=== PATIENT | female | born 1950 | race Caucasian/White ===

== ENCOUNTER 2016-04-30 07:56 | Day surgery (SDC) | payer BC ==
--- NOTE | ~2016-04-30 | EGD ---
EGD REPORT [facility] [address] [address] NAME: MARLEY ROTH : [birth year] STATUS : REG [facility]#: [id number] AGE: 65 ADM/REG DATE : 04/30/16 MR#: [id number] REPORT SERV DATE: 04/30/16 DICTATED BY: DATE: REPORT STATUS : Draft TRANSCRIBED BY: [employer] DATE: 04/30/16 [facility] Patient Name: Marley Roth Date of : 1950 Attending MD: NADEEN OLIVEIRA MD Procedure Date No Time: 04/30/2016 Procedure: Colonoscopy Indications: Screening for colorectal malignant neoplasm Referring MD: SABA BLANC MD Medicines: as per anesthesia Complications: No immediate complications. Procedure: Pre-Anesthesia Assessment: - ASA Grade Assessment: III - A patient with severe systemic disease. After I obtained informed consent, the scope was passed under direct vision. Throughout the procedure, the patient's blood pressure, pulse, and oxygen saturations were monitored continuously. The PCF [id number] was introduced through the anus and advanced to the cecum, identified by appendiceal orifice and ileocecal valve. The colonoscopy was performed without difficulty. The patient tolerated the procedure well. The quality of the bowel preparation was adequate to identify polyps. Findings: The perianal and digital rectal examinations were normal. A sessile polyp was found in the rectum. The polyp was 3 mm in size. The polyp was removed with a cold biopsy forceps. Resection and retrieval were complete. A few small and large-mouthed diverticula were found in the sigmoid colon. Internal hemorrhoids were found during endoscopy and were mild. Impression: - One 3 mm polyp in the rectum. Resected and retrieved. - Diverticulosis in the sigmoid colon. - Internal hemorrhoids. Recommendation: - Await pathology results. - Repeat colonoscopy for surveillance based on pathology results. Procedure Code(s): --- Professional --- 35608, Colonoscopy, flexible, proximal to splenic flexure; with biopsy, single or multiple EGD REPORT [facility] [address] [place]. [address] NAME: MARLEY ROTH : [birth year] STATUS : REG [facility] PAT#: [id number] AGE: 65 ADM/REG DATE : 04/30/16 MR#: [id number] REPORT SERV DATE: 04/30/16 DICTATED BY: DATE: REPORT STATUS : Draft TRANSCRIBED BY: [employer] DATE: 04/30/16 Diagnosis Code(s): --- Professional --- K62.1, Rectal polyp K64.8, Other hemorrhoids K57.30, Diverticulosis of large intestine without perforation or abscess without bleeding Z12.11, Encounter for screening for malignant neoplasm of colon CPT copyright 2013 [employer]. All rights reserved. The codes documented in this report are preliminary and upon heating equipment installer review may be revised to meet current compliance requirements. NADEEN OLIVEIRA MD 04/30/2016 9:49 AM This report has been signed electronically. Number of Addenda: 0 Note Initiated On: 04/30/2016 9:26 AM Scope Withdrawal Time 0 hours 8 minutes 48 seconds [address] [facility] [facility] [address] [address]
[~2016-04-30 07:56] MED LIST: DIOVAN320 MG PO; NORV10 PO; PRESERVISION A1 EAC1 PO; VITAMIN B-121000 MC1 SL
[2016-06-29] MEDS ORDERED: XARELTO15 MG PO (21:41)
[2016-06-29] MEDS ORDERED: NORV10 PO (21:41)
[2016-06-29] MEDS ORDERED: PRESERVISION A1 EAC1 PO (21:42)
[2016-06-29] MEDS ORDERED: DIOVAN320 MG PO (21:42)
[2016-06-29] MEDS ORDERED: HYDROCHLOROT25 MG PO (21:43)
[2016-06-29] MEDS ORDERED: HCTZ12.5 PO (21:43)
[2016-06-29] MEDS ORDERED: NITROGLYCERIN SPRAY SL (21:50)
== END 2016-04-30 23:59 | disposition home or self-care (01) ==
LOC: DMU 07:56
PROVIDERS: Internal Medicine Gastroenterology
PROC: 0DBP8ZZ Excision of Rectum, Via Natural or Artificial Opening Endoscopic (ICD-10-PCS; principal; 2016-04-30 09:30)
DX: Z12.11 Encounter for screening for malignant neoplasm of colon (principal); K62.1 Rectal polyp; K64.8 Other hemorrhoids; K57.30 Diverticulosis of large intestine without perforation or abscess without bleeding; I10 Essential (primary) hypertension; E66.01 Morbid (severe) obesity due to excess calories; Z79.899 Other long term (current) drug therapy; Z88.0 Allergy status to penicillin; Z88.2 Allergy status to sulfonamides; Z88.5 Allergy status to narcotic agent
CPT/HCPCS: 88305

== ENCOUNTER 2016-06-29 22:13 | Observation (INO) | payer BC ==
--- NOTE | ~2016-06-29 | HP ---
History And Physical [place] [address] [facility]. [address] NAME: SANDEEP ROTH : [birth year] STATUS : ADM [facility] PAT#: [id number] AGE: 65 ADM/REG DATE : 06/29/16 MR#: [id number] REPORT SERV DATE: 06/30/16 DICTATED BY: DATE: REPORT STATUS : Draft TRANSCRIBED BY: MODL DATE: 06/30/16 DATE OF ADMISSION: 06/29/2016 CHIEF COMPLAINT: Chest pain. HISTORY OF PRESENT ILLNESS: This is a very pleasant 65-year-old white female without any cardiac history, who about a week ago developed chest pain and pressure substernally, 10/10 radiating to her bilateral jaws with increased shortness of breath, feeling flushed, and feeling palpitations. She denies having any nausea, vomiting, dizziness, or orthopnea at that time. She reports that the day after, her chest pain event which is intermittent, she went to her primary care doctor who increased her blood pressure medications, started her on a diuretic and a blood thinner and ordered a CT of the chest on Tuesday, which the patient reports was negative. She was also scheduled for a stress test and an echo this Tuesday; however, she reports that the shortness of breath continued, and she has a bandlike feeling underneath her breast that are causing some chest pressure at times. She also experienced generalized weakness, lightheadedness, arms feeling very heavy with fingers tingling yesterday around 1830 hours while she was at work, therefore she came in. She reports that after a nitroglycerin patch was applied to her chest and on arrival to the floor, all of her chest pain and pressure symptoms have resolved. Currently, she denies any shortness of breath, chest pain, nausea, or vomiting. The patient denies any personal history of myocardial infarction, stroke, DVT, or pulmonary embolus. The patient denies any recent fever or chills. No syncopal episodes. The patient denies PND or orthopnea. PAST MEDICAL HISTORY: Hypertension. PAST SURGICAL HISTORY: Hysterectomy, cholecystectomy, TMJ, left breast biopsy that she reports was noncancerous. 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 She is with one child. She denies any tobacco use. She denies any alcohol use. She denies any illicit drug use. FAMILY MEDICAL HISTORY: She reports that her mother had lupus and shingles, but no heart problems. Her father had an MT at the age of 60. He lived up until the age of 75 and from emphysema. REVIEW OF SYSTEMS: A 14-point review of systems was performed significant for HPI. No other contributory diagnosis identified. ALLERGIES: PENICILLINS, REACTION, CHILDHOOD REACTION OF RASH; SULFA, REACTION UPSET STOMACH AND DIARRHEA; MORPHINE, UNKNOWN REACTION IN THE HOSPITAL. HOME MEDICATIONS: Xarelto 15 mg p.o. twice a day, Norvasc 10 mg p.o. daily, Diovan 320 mg History And Physical [address] [address] NAME: SANDEEP ROTH : [birth year] STATUS : ADM [facility] PAT#: [id number] AGE: 65 ADM/REG DATE : 06/29/16 MR#: [id number] REPORT SERV DATE: 06/30/16 DICTATED BY: DATE: REPORT STATUS : Draft TRANSCRIBED BY: MODL DATE: 06/30/16 p.o. daily, PreserVision AREDS 2 Soft Gel 1 capsule p.o. twice a day, hydrochlorothiazide 12.5 mg p.o. daily, and nitroglycerin spray 1 spray sublingually every 5 minutes times total of 3 p.r.n. chest pain. PHYSICAL EXAMINATION: BP: 121/68; Pulse: 66; RR: 18; Temp: 97.9; O2 sat: 96% on room air; BMI of 39.1. GENERAL: Cooperative, in no apparent distress. HEENT: Head is normocephalic, anicteric. Normal EOM. PERRLA. No xanthelasma. Nares patent. Moist mucous membranes. NECK: Trachea midline. No thyromegaly, JVD or bruits. RESPIRATORY: Clear to auscultation bilaterally anterior and posterior. Respirations even and unlabored. No wheezes, rhonchi or crackles. CARDIOVASCULAR: Regular rate and rhythm. No murmur, rub or gallop appreciated. No chest wall tenderness to palpation. ABDOMEN: Soft, nontender, nondistended, normal bowel sounds auscultated throughout. No masses or organomegaly. EXTREMITIES: No peripheral edema. DP/PT and radial pulses palpable bilaterally. No clubbing or cyanosis. SKIN: Warm, dry and intact. Normal turgor. No pallor or cyanosis. NEURO/PSYCH: Alert, oriented x3 with no acute distress. Affect appropriate to current situation. DIAGNOSTIC DATA: Chest x-ray shows lungs are clear. Heart size is within normal limits. EKG done today shows sinus rhythm, 68. monitor and storage bin tender shows sinus rhythm, 70. No pauses, ectopy, or arrhythmias noted. LABORATORY DATA: Troponins x2 is less than 0.02. Sodium 140, potassium 3.7, BUN 16, creatinine 0.91, GFR 78, glucose 105, calcium 9.2, and magnesium 2.2. White blood cells 9.1, hemoglobin 15.3, hematocrit 44.3, and platelets 255. INR 1.6. BNP is less than 2.0. ASSESSMENT AND PLAN: 1. Substernal chest pain. The patient's chest pain and pressure have resolved. She has two troponins that have been negative, less than 0.02. There is a cardiac risk factors of family history and hypertension. The patient has been observed in the CPOU overnight to rule out myocardial infarction with serial enzymes and serial EKGs. We will keep the patient n.p.o. today and plan a cardiac PET scan due to the large breast size and increased BMI. If the stress test shows low risk or no ischemia, RN may then discharge the patient home. The patient will be asked to follow up with her PCP in one to two weeks with all the studies being sent to the office. If anything suggestive of ischemia, Cardiology referral will be initiated. 2. Hypertension. Appears to be stable at 121/68. We will continue to monitor. 3. Palpitations. The patient reports palpitations occur only during the chest pain event. She denies any currently. There are no arrhythmias or ectopies noted on the patient's telemetry or EKG. We will continue to monitor. 4. Obesity. BMI of 39.1. The patient reports to have an exercise regimen. We will continue to encourage her to exercise as previously done. 5. She reports to have leg cramps last night. Which she reports were resolved after History And Physical [address] [address] NAME: SANDEEP ROTH : 54 STATUS : ADM [facility] PAT#: [id number] AGE: 65 ADM/REG DATE : 06/29/16 MR#: [id number] REPORT SERV DATE: 06/30/16 DICTATED BY: DATE: REPORT STATUS : Draft TRANSCRIBED BY: MODL DATE: 06/30/16 repletion of potassium. Her potassium today is 3.7. She reports her leg cramping has resolved. She denies any calf tenderness or any pain on walking. There is also no swelling to the lower extremities or any redness noted. EKS/MODL Olive Sears APN / [id number] CC: Yadria Rick, MSN, GROUNDS [employer]EMAN-BC Niecy Mahan M.D.
[2016-06-29 21:02] LABS: BASOPHILS 0.5 %; BASOPHILS ABSOLUTE 0.05 10/3/uL (0.0-0.16); EOSINOPHILS 0.2 %; EOSINOPHILS ABSOLUTE 0.02 10/3/uL (0.0-0.53); HEMATOCRIT 44.3 % (36.0-48.0); HEMOGLOBIN 15.3 g/dL (12.0-16.0); IMMATURE GRANULOCYTES 0.1 %; IMMATURE GRANULOCYTES ABSOLUTE 0.01 10/3/uL (0.0-0.11); LYMPHOCYTES 26.2 %; LYMPHOCYTES ABSOLUTE 2.39 10/3/uL (0.67-4.30); MANUAL DIFF NO %; MEAN CORPUS HGB CONC 34.5 g/dL (32.0-36.0); MEAN CORPUSCULAR HEMOGLOB 30.4 pg (26.0-34.0); MEAN CORPUSCULAR VOLUME 88.1 fL (80-100); MEAN PLATELET VOLUME 10.3 fL (9.2-13.0); MONOCYTES 8.8 %; NEUTROPHILS 64.2 %; NEUTROPHILS ABSOLUTE 5.85 10/3/uL (2.02-8.40); PLATELET COUNT 255 10/3/uL (150-400); RBC DISTRIBUTION WIDTH 12.8 % (12.0-16.0); RED CELL COUNT 5.03 10/6/uL (4.0-5.6); WHITE BLOOD CELLS 9.1 10/3/uL (4.5-10.5)
[2016-06-29 21:15] LABS: INTERNATIONAL NORMAL RATI 1.6 UNITS (-); PARTIAL THROMBO TIME 41.4 SEC (22.5-37.2); PROTIME (NOT ORD) 19.2 SEC (12.0-14.5)
[2016-06-29 21:18] LABS: CALCIUM, SERUM 9.8 MG/DL (8.5-10.4); CHEST PAIN PROFILE TAT 0 Hrs 20 Mins; CHLORIDE, SERUM 103 MMOL/L (96-112); CREATININE 1.08 MG/DL (0.55-1.02); GFR AFRICAN AMERICAN 63 ML/MIN (>=60); GFR NON AFRICAN AMERICAN 55 ML/MIN (>=60); POTASSIUM, SERUM 3.4 MMOL/L (3.5-5.3); SODIUM, SERUM 139 MMOL/L (135-148); TROPONIN I <0.02 NG/ML (<0.05)
[2016-06-29 21:21] LABS: BUN (BLOOD UREA NITROGEN) 17 MG/DL (6-23); CO2 (CARBON DIOXIDE) 31 MMOL/L (24-34); GLUCOSE, SERUM 135 MG/DL (60-99)
[~2016-06-29 22:13] MED LIST changes: +HCTZ12.5 PO; +HYDROCHLOROT25 MG PO; +NITROGLYCERIN SPRAY SL; +XARELTO15 MG PO
[2016-06-30 04:50] LABS: BUN (BLOOD UREA NITROGEN) 16 MG/DL (6-23); CALCIUM, SERUM 9.2 MG/DL (8.5-10.4); CHLORIDE, SERUM 105 MMOL/L (96-112); CO2 (CARBON DIOXIDE) 29 MMOL/L (24-34); CREATININE 0.91 MG/DL (0.55-1.02); GFR AFRICAN AMERICAN 78 ML/MIN (>=60); GFR NON AFRICAN AMERICAN 67 ML/MIN (>=60); POTASSIUM, SERUM 3.7 MMOL/L (3.5-5.3); SODIUM, SERUM 140 MMOL/L (135-148); TROPONIN I <0.02 NG/ML (<0.05)
[2016-06-30 04:53] LABS: GLUCOSE, SERUM 105 MG/DL (60-99)
== END 2016-06-30 14:32 | disposition home or self-care (01) ==
LOC: ER 22:13 → CDU1 22:54
PROVIDERS: Clinical Nurse Specialist; Specialist
DX: R07.89 Other chest pain (principal); I10 Essential (primary) hypertension; R00.2 Palpitations; E66.9 Obesity, unspecified; Z68.39 Body mass index [BMI] 39.0-39.9, adult; Z90.49 Acquired absence of other specified parts of digestive tract; Z90.710 Acquired absence of both cervix and uterus; Z98.890 Other specified postprocedural states; Z88.0 Allergy status to penicillin; Z88.2 Allergy status to sulfonamides; Z88.5 Allergy status to narcotic agent; Z79.899 Other long term (current) drug therapy
CPT/HCPCS: 71020; 78492; 80048; 83735; 83880; 84484; 85025; 85610; 85730; 93005; 93017; 99285; A9270-GY; A9555; G0378; J2785